=== PATIENT | male | born 1970 | race Caucasian/White ===

== ENCOUNTER 2018-08-22 12:35 | Emergency (ER) | payer MEDICAID ==
[~2018-08-22] VITALS: Ht 177.8 cm; Wt 88.9 kg
[2018-08-22 12:54] VITALS: Ht 177.8 cm; Wt 88.9 kg
[2018-08-22 14:42] VITALS: BP 137/77
== END 2018-08-22 14:42 | disposition home or self-care (01) ==
LOC: ED 12:35
DX: J45.909 Unspecified asthma, uncomplicated (principal)
CPT/HCPCS: J7512; Q0092

== ENCOUNTER 2019-05-30 11:13 | Emergency (ER) | payer OTHER ==
[~2019-05-30] VITALS: Ht 170.2 cm; Wt 87.5 kg
[2019-05-30 11:40] VITALS: Ht 170.2 cm; Wt 87.5 kg
[2019-05-30 12:47] VITALS: BP 113/60
== END 2019-05-30 12:47 | disposition home or self-care (01) ==
LOC: ED 11:13
DX: K61.1 Rectal abscess (principal); J45.909 Unspecified asthma, uncomplicated
CPT/HCPCS: J0690

== ENCOUNTER 2019-06-01 09:51 | Observation (INO) | payer OTHER ==
[~2019-06-01] VITALS: Ht 172.7 cm; Wt 87.1 kg
[2019-06-01 10:21] VITALS: Ht 172.7 cm; Wt 87.1 kg
[2019-06-01 12:52] LABS: BASOPHIL % 0.5 % (0-2); PLATELET COUNT 235 x10^3mcL (130-400); RED CELL DISTRIBUTION WIDTH 13.7 % (11.5-14.5)
[2019-06-01 13:18] LABS: CALCIUM 8.4 mg/dL (8.5-10.1); CARBON DIOXIDE 25.4 mmol/L (21-32); CHLORIDE SERUM 104 mmol/L (98-107); GFR1 > 60 mL/min; GLUCOSE SERUM 90 mg/dL (74-106); POTASSIUM SERUM 3.9 mmol/L (3.5-5.1); SODIUM SERUM 139 mmol/L (136-145)
[2019-06-01 13:30] LABS: ALBUMIN 3.5 g/dL (3.4-5.0); ALKALINE PHOSPHATASE 86 U/L (46-116); ALT/SGPT 32 U/L (16-63); AST/SGOT 19 U/L (15-37); BILIRUBIN TOTAL 0.28 mg/dL (0.20-1.00); TOTAL PROTEIN, SERUM 7.3 g/dL (6.4-8.2)
[2019-06-01 13:45] LABS: microscopic required? NO
[2019-06-01 14:29] LABS: UA SPECIFIC GRAVITY 1.015 (1.005-1.035); urine erythrocyte NEGATIVE (NEGATIVE)
[2019-06-01] MEDS ORDERED: BACTRIM DS1 TAB PO (16:45)
[2019-06-01 18:01] VITALS: BP 110/68
[2019-06-01 20:36] VITALS: BP 92/54
[2019-06-02 05:32] VITALS: BP 98/53
[2019-06-02 06:51] LABS: BASOPHIL % 0.5 % (0-2); PLATELET COUNT 232 x10^3mcL (130-400); RED CELL DISTRIBUTION WIDTH 13.6 % (11.5-14.5)
[2019-06-02 07:04] LABS: ALKALINE PHOSPHATASE 72 U/L (46-116); ALT/SGPT 26 U/L (16-63); AST/SGOT 16 U/L (15-37); BILIRUBIN TOTAL 0.4 mg/dL (0.20-1.00); CARBON DIOXIDE 25.5 mmol/L (21-32); CHLORIDE SERUM 107 mmol/L (98-107); CREATININE SERUM 0.9 mg/dL (0.7-1.3); GFR1 > 60 mL/min; GLUCOSE SERUM 86 mg/dL (74-106); MAGNESIUM 2.1 mg/dL (1.8-2.4); POTASSIUM SERUM 4.4 mmol/L (3.5-5.1); SODIUM SERUM 139 mmol/L (136-145); TOTAL PROTEIN, SERUM 6.4 g/dL (6.4-8.2)
[2019-06-02 07:06] LABS: ALBUMIN 2.9 g/dL (3.4-5.0)
[2019-06-02 09:38] VITALS: BP 104/70
[2019-06-02 17:07] VITALS: BP 105/62
[2019-06-02 21:02] VITALS: BP 95/55
[2019-06-03 05:25] VITALS: BP 100/61
[2019-06-03 08:58] VITALS: BP 105/63
[2019-06-03 16:35] VITALS: BP 100/61
[2019-06-03 18:36] VITALS: BP 100/61
== END 2019-06-03 19:26 | disposition home or self-care (01) | DRG 223 ==
LOC: ED 09:51 → MU 16:30
PROVIDERS: Emergency Medicine; Surgery; ADMIT Internal Medicine Pulmonary Disease
PROC: 0D9P0ZZ Drainage of Rectum, Open Approach (ICD-10-PCS; principal; 2019-06-03 11:00)
DX: K61.1 Rectal abscess (principal); J45.909 Unspecified asthma, uncomplicated; K64.8 Other hemorrhoids
CPT/HCPCS: 90658; G0378; J0295; J2175; J2250; J2405; J2543; J2704; J3010; J3370; J3490; J7030; J7050; J7120; Q9967

== ENCOUNTER 2019-10-14 18:27 | Emergency (ER) | payer OTHER ==
[~2019-10-14] VITALS: Ht 177.8 cm; Wt 88.9 kg
[~2019-10-14 18:27] MED LIST: BACTRIM DS1 TAB PO
[2019-10-14 18:49] VITALS: Ht 177.8 cm; Wt 88.9 kg
[2019-10-14 21:18] VITALS: BP 127/70
== END 2019-10-14 21:18 | disposition home or self-care (01) ==
LOC: ED 18:27
DX: J45.901 Unspecified asthma with (acute) exacerbation (principal)
CPT/HCPCS: J7512

== ENCOUNTER 2019-11-20 14:41 | Emergency (ER) | payer OTHER ==
[~2019-11-20] VITALS: Ht 167.6 cm; Wt 86.2 kg
[2019-11-20 14:43] VITALS: Ht 167.6 cm; Wt 86.2 kg
[2019-11-20 15:44] VITALS: BP 120/78
== END 2019-11-20 15:44 | disposition home or self-care (01) ==
LOC: ED 14:41
DX: J45.901 Unspecified asthma with (acute) exacerbation (principal)
CPT/HCPCS: J7512; Q0092